=== PATIENT | male | born 2000 | race Caucasian/White ===

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

== ENCOUNTER 2019-02-12 03:34 | Emergency (ER) | payer OTHER ==
[~2019-02-12] VITALS: Ht 180.3 cm; Wt 102.9 kg
[~2019-02-12 03:34] MED LIST changes: +GUAI120S25 PO; -GUAI120S26 PO; +IBUP-1542 PO; +IBUP-1561 PO; -IBUP400T22 PO; +LORA1TAB54 PO
[2019-02-12 03:39] VITALS: BP 128/76; PULSE 88; RESP 19; Ht 180.3 cm; Wt 102.9 kg
--- NOTE | 2019-02-12 03:59 | ERD ---
ER Documentation Chief Complaint Chief Complaint BIB SELF, CC: DISCOLORATION OF GENITALS, DYSURIA X 1 WEEK HPI This is a 18-year-old male who presents the emergency department with complaints of penile pain. Also complains of dysuria. Had a sexual intercourse with coworker last Friday whom he knew that he is also having sex with another coworker. Stated that this girl also has a boyfriend. Patient stated that he does not know if this girl has symptoms. Denies headache, head injury, loss of consciousness, dizziness, neck pain, neck stiffness, throat pain, difficulty swallowing, difficulty breathing lying flat, shoulder pain, chest pain, back pain, abdominal pain, nausea, vomiting, cons tipation, diarrhea, loss of bowel and bladder control, trauma, injury, falls, difficulty walking due to pain, numbness or tingling sensation, calf pain, recent travel, recent major surgery in the last 3 weeks, calf pain, recent long travel, recent exposure to any illness, recent antibiotic use in the last 3 months, fever, chills, seizures. Past medical history: Surgical history: Social: Denies smoking, use of alcoholic beverages, use of illegal drugs. ROS All systems reviewed and are negative except as per history of present illness. Medications Home Meds Active Scripts Ibuprofen* (Motrin*) 800 Mg Tab, 800 MG PO Q6H PRN for PAIN AND OR ELEVATED TEMP, #30 TAB Prov:NATIVIDAD NETTLES 02/12/19 Acyclovir* (Zovirax*) 800 Mg Tablet, 800 MG PO 5 TIMES DAILY for 7 Days, TAB Prov:NATIVIDAD NETTLES 02/12/19 Loratadine/Pseudoephedrine* (Claritin-D* 12 Hr) 5-120 Mg Tab.er.12h, 1 TAB PO DAILY, #15 TAB.SA Prov:RODRI LOPEZ MD 06/06/17 Ibuprofen* (Motrin*) 600 Mg Tab, 600 MG PO Q6H PRN for PAIN AND OR ELEVATED TEMP, #30 TAB Prov:RODRI LOPEZ MD 06/06/17 Neomycin/Polymyxin/Hydrocort* (Cortisporin* Otic) 10 Ml Susp, 4 DROP LEFT EAR QID for 7 Days, EA Prov:GUILLERMO ESPINAL NP 03/11/17 Ondansetron (Ondansetron Odt) 4 Mg Tab.rapdis, 4 MG PO Q8 PRN for NAUSEA AND/OR VOMITING, #30 TAB Prov:RUTJAQUANGUILLERMO MONTEJO NP 05/14/16 Ibuprofen* (Motrin*) 400 Mg Tab, 400 MG PO Q6H PRN for PAIN AND OR ELEVATED TEMP, #30 TAB Prov:RUTGUILLERMO IRIZARRY NP 05/14/16 Cetirizine Hcl* (Zyrtec*) 10 Mg Capsule, 10 MG PO DAILY, #30 TAB.CHEW Prov:RUTGUILLERMO IRIZARRY NP 05/14/16 Wcjlzqjjcyr-L-Bgyqqgjfit Hb* (Guaifenesin* DM Syrup) 120 Ml Syrup, 10 ML PO Q4H PRN for COUGH, #120 ML Prov:KYLIEGUILLERMO LANDA Burt GHOSH 05/14/16 Allergies Allergies: Coded Allergies: No Known Allergy (Unverified , 07/15/14) PMhx/Soc Medical and Surgical Hx: pt denies Medical Hx, pt denies Surgical Hx History of Surgery: No Anesthesia Reaction: No Hx Neurological Disorder: No Hx Respiratory Disorders: No Hx Cardiac Disorders: No Hx Psychiatric Problems: No Hx Miscellaneous Medical Probl: No Hx Alcohol Use: No Hx Substance Use: No Hx Tobacco Use: No Smoking Status: Never smoker Physical Exam Vitals Vital Signs Date Temp Pulse Resp B/P (MAP) Pulse Ox O2 O2 Flow FiO2 Time Delivery Rate 02/12/19 98.6 88 19 128/76 100 03:39 (93) Physical Exam Const: No acute distress Head: Atraumatic Eyes: Normal Conjunctiva ENT: Normal External Ears, Nose and Mouth. Neck: Full range of motion. No meningismus. Resp: Clear to auscultation bilaterally Cardio: Regular rate and rhythm, no murmurs Abd: Soft, non tender, non distended. Normal bowel sounds. Negative Ceja sign. Negative Sammi sign (heel jar test) with negative psoas sign but negative Rovsing sign. : Glans penis has a lesion. No bleeding. No discharge. Scrotal area/testicular area: No swelling/discoloration/tenderness. Bilateral inguinal area has no swelling/discoloration/bulging/tenderness. Skin: No petechiae or rashes Back: No midline or flank tenderness Ext: No cyanosis, or edema Neur: Awake and alert. No neurological deficits. Psych: Normal Mood and Affect Results 24 hrs Laboratory Tests Test 02/12/19 05:00 Urine Color YELLOW Urine Clarity SLIGHTLY CLOUDY Urine pH 5.0 Urine Specific [place] 1.032 Urine Ketones TRACE mg/dL Urine Nitrite NEGATIVE mg/dL Urine Bilirubin NEGATIVE mg/dL Urine Urobilinogen 2+ mg/dL Urine Leukocyte Esterase 2+ Cirilo/ul Urine Microscopic RBC 33 /HPF Urine Microscopic WBC 76 /HPF Urine Squamous Epithelial Cells FEW /HPF Urine Bacteria FEW /HPF Urine Mucus MANY /HPF Urine Hemoglobin 1+ mg/dL Urine Glucose NEGATIVE mg/dL Urine Total Protein 1+ mg/dl Current Medications Medications Dose Sig/Barbara Start Time Status Last (Trade) Ordered Route PRN Stop Time Admin Dose Reason Admin Ceftriaxone 250 mg ONCE ONCE 02/12/19 DC 02/12/19 Sodium IM 04:00 04:11 (Rocephin) 02/12/19 04:03 1,000 mg ONCE ONCE 02/12/19 DC 02/12/19 Azithromycin PO 04:30 04:21 (Zithromax) 02/12/19 04:31 Procedures/MDM Diagnostic tests: Urinalysis: Culture urine: Sent. Gonorrhea and Chlamydia: Sent. Treatment: Ceftriaxone IM. Azithromycin p.o. Re-evaluation: Denies abdominal pain, back pain, pelvic pain, penile pain, penile discharge, penile bleeding, scrotal pain. No abdominal tenderness. No CVA tenderness. Stated that he feels much better at this time and that he is comfortable going home. Differential diagnosis I have low suspicion for kidney stones, septic stone, sepsis, obstructing kidney stones, testicular torsion, testicular trauma. Final diagnosis: Herpes. Possible STDs. Prescription: Acyclovir/Zovirax. Motrin. Follow-up with PCP in the next 24-48 hours. Come back here in the emergency department for any new symptoms or any worsening symptoms. All questions and concerns were answered. Patient and family members verbalized understanding and agreed with plan of care. Hemodynamically stable on discharge. Departure Diagnosis: Primary Impression: Genital herpes Additional Impression: STD exposure Condition: Stable Additional Instructions: Follow-up with PCP in the next 24-48 hours. Come back here in the emergency department for any new symptoms or any worsening symptoms. NATIVIDAD NETTLES Feb 12, 2019 03:59
[2019-02-12] MEDS ORDERED: CEFTRIAXONE 250 MG INJ IM ONE (04:00)
[2019-02-12] MEDS ORDERED: IBUP800T48 PO (04:23)
[2019-02-12] MEDS ORDERED: ACYC800T5 PO (04:23)
[2019-02-12] MEDS ORDERED: AZITHROMYCIN 500 MG TAB PO ONE (04:30)
== END 2019-02-12 05:50 | disposition home or self-care (01) ==
LOC: FTE 03:34
DX: A60.02 Herpesviral infection of other male genital organs (principal); Z20.2 Contact with and (suspected) exposure to infections with a predominantly sexual mode of transmission
CPT/HCPCS: 81001; 87086; 87591; 96372; J0696; Z7502; Z7610